=== PATIENT | female | born 1980 | race Caucasian/White ===

== ENCOUNTER 2016-04-20 13:33 | Emergency (ER) | payer OTHER ==
[~2016-04-20] VITALS: Ht 154.9 cm; Wt 113.4 kg
[~2016-04-20 13:33] MED LIST: METF500T2 PO
[2016-04-20 13:55] VITALS: BP 153/101
--- NOTE | 2016-04-20 14:05 | NUR ---
PT TO ER BED 7.
--- NOTE | 2016-04-20 14:10 | NUR ---
Patient being evaluated by physician at bedside.
[2016-04-20] MEDS ORDERED: NACL 0.9% 1,000 ML IV ONE (14:15)
--- NOTE | 2016-04-20 14:16 | NUR ---
35/F presents to the ED with complaints of palpitations since approximately 1200. Pt states she was sitting at lunch at work. Patient denies chest pain or SOB. She states "I feel like my heart is racing." Pt is crying. Pt states "I feel very anxious and feel like I want to cry." Patient is AOX4, tunisian speaking. Patient is crying but cooperative. Patient placed into a gown, placed on bond underwriter, pulse oximetry and blood pressure monitoring. VSS.
--- NOTE | 2016-04-20 14:28 | NUR ---
PT C/O HEADACHE AT THIS TIME. PT IS CRYING AND APPEARS ANXIOUS. DR. MOORE MADE AWARE.
[2016-04-20 14:29] LABS: BASOPHILS # (AUTO) 0.1 K/uL (0.00-0.22); BASOPHILS % (AUTO) 0.7 % (0.0-2.0); EOSINOPHILS # (AUTO) 0.3 K/uL (0-0.4); EOSINOPHILS % (AUTO) 2.8 % (0.0-4.0); HEMATOCRIT 36.5 % (36-48); HEMOGLOBIN 12.2 g/dL (12.0-16.0); LYMPHOCYTES # (AUTO) 3.7 K/uL (2.5-16.5); LYMPHOCYTES % (AUTO) 35.6 % (20.5-51.1); MEAN CORPUSCULAR HEMOGLOBIN 28 pg (27-31); MEAN CORPUSCULAR HGB CONC 33 g/dL (33-37); MEAN CORPUSCULAR VOLUME 82 fL (80-94); MONOCYTES # (AUTO) 0.5 K/uL (0.8-1.0); NEUTROPHILS # (AUTO) 5.9 K/uL (1.8-7.7); NEUTROPHILS % (AUTO) 55.9 % (42.2-75.2); PLATELET COUNT (AUTO) 283 K/uL (140-450); RED BLOOD CELL COUNT(AUTO) 4.43 MIL/uL (4.20-5.40); RED CELL DISTRIBUTION WIDTH 12.6 % (11.6-13.7); WHITE BLOOD COUNT (AUTO) 10.5 K/uL (4.8-10.8)
[2016-04-20 14:39] LABS: CALCIUM 8.6 mg/dL (8.5-10.1); CARBON DIOXIDE 25.9 mmol/L (21-32); CREATININE 0.8 mg/dL (0.6-1.3); POTASSIUM 3.9 mmol/L (3.5-5.1)
[2016-04-20 14:48] LABS: ALBUMIN 3.7 g/dL (3.4-5.0); MAGNESIUM 1.6 mg/dL (1.8-2.4); TOTAL BILIRUBIN 0.2 mg/dL (0.0-1.0); TOTAL PROTEIN, SERUM 7.5 g/dL (6.4-8.2)
[2016-04-20] MEDS ORDERED: KETOROLAC 30 MG/ML VIAL IVP ONE (14:55)
--- NOTE | 2016-04-20 15:31 | NUR ---
Patient appears to be resting comfortably in bed. Vital Signs within normal limits. Respirations even and unlabored.
--- NOTE | 2016-04-20 15:54 | NUR ---
IV removed, catheter intact and site benign. Applied folded 4x4 gauze and tape to stop bleeding.
[2016-04-20 16:30] VITALS: BP 139/94
--- NOTE | 2016-04-20 16:30 | NUR ---
Chart checked and completed. The patient's care was reviewed and supervised by Edward Dye RN.
--- NOTE | 2016-04-20 16:30 | NUR ---
Patient discharged with v/s stable. Written and verbal after care instructions given and explained. Patient verbalized understanding. Ambulatory with steady gait. All questions addressed prior to discharge. Advised to follow up with PMD.
== END 2016-04-20 16:30 | disposition home or self-care (01) ==
LOC: MED 13:33
DX: R00.2 Palpitations (principal); E11.9 Type 2 diabetes mellitus without complications; R06.02 Shortness of breath
CPT/HCPCS: 36415; 71010; 80053; 83735; 84484; 84703; 85025; 85379; 93005; 96361; 96374; 99285; J1885; J7030; Q0092

== ENCOUNTER 2016-06-29 19:12 | Emergency (ER) | payer OTHER ==
[~2016-06-29] VITALS: Ht 157.5 cm; Wt 116.6 kg
[~2016-06-29 19:12] MED LIST changes: +GLUCOPHAGE XR500 MG PO; -METF500T2 PO
[2016-06-29 19:21] VITALS: BP 137/75
--- NOTE | 2016-06-29 22:55 | NUR ---
35Y F BIB FAMILY C/O PELVIC PAIN X 3 DAYS, NO BLOOD IN URINE PER PT. NON RADIATING. 8/10 PAIN. PT DENIES ANY ALLERGIES, NO CP OR SOB AT THE MOMENT. PT AAO X 4. CURRENTLY AT THE MOMENT BUT IS UNAWARE OF HOW MANY WEEKS.
--- NOTE | 2016-06-29 22:55 | NUR ---
TO ER BED 7
--- NOTE | 2016-06-29 23:40 | NUR ---
ULTRASOUND AT BEDSIDE
[2016-06-30 00:31] VITALS: BP 136/79
--- NOTE | 2016-06-30 00:31 | NUR ---
Note undone in EDM - 06/30/16 at 0038 by MARCELINO Patient discharged with v/s stable BY ER MD DR COTE . Written and verbal after care instructions given and explained BY ER MD DR COTE. Patient alert, oriented and verbalized understanding of instructions. Ambulatory with steady gait. All questions addressed prior to discharge BY ER MD DR COTE. ID band removed. Patient advised to follow up with PMD. Rx of MACROBID 100MG given. Patient educated on indication of medication including possible reaction and side effects. Opportunity to ask questions provided and answered BY ER MD DR COTE.
== END 2016-06-30 00:31 | disposition home or self-care (01) ==
LOC: MED 19:12
DX: O23.41 Unspecified infection of urinary tract in pregnancy, first trimester (principal); O26.891 Other specified pregnancy related conditions, first trimester; E11.9 Type 2 diabetes mellitus without complications; Z3A.01 Less than 8 weeks gestation of pregnancy
CPT/HCPCS: 36415; 76801; 76817; 80053; 81001; 81025; 83690; 84702; 85025; 87086; 99285; Q0092

== ENCOUNTER 2018-04-02 14:14 | Emergency (ER) | payer OTHER ==
[~2018-04-02] VITALS: Ht 152.4 cm; Wt 115.7 kg
[~2018-04-02 14:14] MED LIST changes: -GLUCOPHAGE XR500 MG PO; +METF500T2 PO
[2018-04-02 14:44] VITALS: BP 111/64
--- NOTE | 2018-04-02 14:44 | NUR ---
PATIENT AMBULATED TO BED #2
--- NOTE | 2018-04-02 14:57 | NUR ---
37 Y/O F PRESENTS W/C/O DRY COUGH. PT DENIES N/V/D; SKIN IS INTACT, PINK/WARM/DRY; AAOX4, PERRL, WITH EVEN AND STEADY GAIT; LUNGS CLEAR BL, BREATHING UNLABORED; HR EVEN AND REGULAR, BL PERIPHERAL PULSES PRESENT; BS ACTIVE X4, NO TENDERNESS TO PALPATION, NO HEPATOSPLENOMEGALLY PALPATED, RESONANT TO PERCUSSION; PT DENIES ANY FEVER, CP, SOB, OR COUGH AT THIS TIME; PT STATES 8/10 PAIN AT THIS TIME; VSS; PATIENT POSITIONED FOR COMFORT; HOB ELEVATED; BEDRAILS UP X2; BED DOWN.
[2018-04-02] MEDS ORDERED: ALBUTEROL SULFATE/IPRATROPIU 3 ML SOL IH ONE (15:10)
[2018-04-02] MEDS ORDERED: KETOROLAC 60 MG/2 ML VIAL IM ONE (15:10)
[2018-04-02] MEDS ORDERED: hydrOXYzine HCL 25 MG TAB PO ONE (15:10)
--- NOTE | 2018-04-02 15:23 | NUR ---
[facility] THERAPY AND RESP[OIRATORY DRUG GIVEN ORDERED ENCOURAGED PATIENT FOR INTERMITTENT DEEP BREATHING AND COUGH
[2018-04-02] MEDS ORDERED: PROMETHAZINE 25 MG/ML VIAL IM ONE (15:25)
[2018-04-02 15:42] LABS: APPEARANCE,URINE CLEAR (CLEAR); BILIRUBIN,URINE NEGATIVE (NEGATIVE); BLOOD, URINE NEGATIVE (NEGATIVE); COLOR,URINE YELLOW (YELLOW); LEUKOCYTE ESTERASE ,URINE NEGATIVE (NEGATIVE); NITRITE, URINE NEGATIVE (NEGATIVE); PH,URINE 5.5 (5.0-9.0); UGLUCOSE NEGATIVE (NEGATIVE)
[2018-04-02 16:59] VITALS: BP 110/69
--- NOTE | 2018-04-02 17:00 | NUR ---
Patient discharged with v/s stable. Written and verbal after care instructions given and explained. Patient alert, oriented and verbalized understanding of instructions. Ambulatory with steady gait. All questions addressed prior to discharge. ID band removed. Patient advised to follow up with PMD. Rx of PROMETHAZINE, PREDNISONE, TAMIFLU given. Patient educated on indication of medication including possible reaction and side effects. Opportunity to ask questions provided and answered.
== END 2018-04-02 17:00 | disposition home or self-care (01) ==
LOC: MED 14:14
DX: J10.1 Influenza due to other identified influenza virus with other respiratory manifestations (principal); E11.9 Type 2 diabetes mellitus without complications; Z79.84 Long term (current) use of oral hypoglycemic drugs
CPT/HCPCS: 71045; 81003; 81025; 87804; 94640; 96372; 99284; J1885; J2550; J7620; Q0092; 36415

== ENCOUNTER 2020-12-17 10:48 | Emergency (ER) | payer BC, OTHER ==
[~2020-12-17] VITALS: Ht 154.9 cm; Wt 110.2 kg
[2020-12-17 11:02] VITALS: BP 145/86
--- NOTE | 2020-12-17 11:05 | NUR ---
40/F BIB SELF WITH C/O ABDOMINAL PAIN, N/V X3 DAYS. STATES PAIN IS ACCOMPANIED WITH NAUSEA AND VOMITING, DENIES DIARRHEA. PATIENT DENIES VAGINAL BLEEDING, BUT STATES SHE HAS "CLEAR DISCHARGE." PATIENT ALSO STATES SHE HAS HX OF DM AND BLOOD SUGAR AT HOME WAS 210 STATING SHE WAS CONCERNED HER SUGAR IS GETTING TO HIGH. STATES SHE IS NOT TAKING HER METFORMIN BECAUSE SHE IS 10 WEEKS . DENIES HEADACHE, DIZZINESS, BLURRED VISION, CP, SOB, FEVER OR CHILLS. PATIENT IS A0.
--- NOTE | 2020-12-17 11:30 | NUR ---
ULTRASOUND AT BEDSIDE
[2020-12-17 11:48] LABS: BASOPHILS % (AUTO) 0.3 % (0.0-2.0); EOSINOPHILS # (AUTO) 0.1 K/uL (0-0.4); EOSINOPHILS % (AUTO) 1.7 % (0.0-4.0); HEMOGLOBIN 11.4 g/dL (12.0-16.0); LYMPHOCYTES # (AUTO) 2.8 K/uL (2.5-16.5); LYMPHOCYTES % (AUTO) 36.8 % (20.5-51.1); MEAN CORPUSCULAR HEMOGLOBIN 26 pg (27-31); MEAN CORPUSCULAR HGB CONC 33 g/dL (33-37); MEAN CORPUSCULAR VOLUME 78.2 fL (80-94); MONOCYTES # (AUTO) 0.4 K/uL (0.8-1.0); MONOCYTES % (AUTO) 5.7 % (1.7-9.3); NEUTROPHILS # (AUTO) 4.2 K/uL (1.8-7.7); NEUTROPHILS % (AUTO) 55.5 % (42.2-75.2); PLATELET COUNT (AUTO) 283 K/uL (140-450); RED BLOOD CELL COUNT(AUTO) 4.47 MIL/uL (4.20-5.40); RED CELL DISTRIBUTION WIDTH 15.9 % (11.6-13.7); WHITE BLOOD COUNT (AUTO) 7.6 K/uL (4.8-10.8)
[2020-12-17 12:11] LABS: ANION GAP 14.5 (8-16); CARBON DIOXIDE 23.3 mmol/L (21-32); POTASSIUM 3.8 mmol/L (3.5-5.1)
[2020-12-17 12:30] LABS: CREATININE 0.6 mg/dL (0.6-1.3)
[2020-12-17 12:31] LABS: ALBUMIN 3.2 g/dL (3.4-5.0)
[2020-12-17 12:33] LABS: TOTAL BILIRUBIN 0.2 mg/dL (0.0-1.0)
[2020-12-17 13:39] VITALS: BP 143/81
[2020-12-17 13:53] LABS: APPEARANCE,URINE CLEAR (CLEAR); BILIRUBIN,URINE NEGATIVE (NEGATIVE); BLOOD, URINE NEGATIVE (NEGATIVE); COLOR,URINE YELLOW (YELLOW); LEUKOCYTE ESTERASE ,URINE NEGATIVE (NEGATIVE); NITRITE, URINE NEGATIVE (NEGATIVE); UGLUCOSE NEGATIVE (NEGATIVE)
== END 2020-12-17 13:39 | disposition home or self-care (01) ==
LOC: MED 10:48
DX: O26.891 Other specified pregnancy related conditions, first trimester (principal); O24.111 Pre-existing type 2 diabetes mellitus, in pregnancy, first trimester; O10.911 Unspecified pre-existing hypertension complicating pregnancy, first trimester; R10.9 Unspecified abdominal pain; Z3A.10 10 weeks gestation of pregnancy; Z79.84 Long term (current) use of oral hypoglycemic drugs; Z98.890 Other specified postprocedural states
CPT/HCPCS: 36415; 76817; 80053; 81003; 81025; 84702; 85025; 99284; Q0092